=== PATIENT | female | born 1940 | race African-American/Black ===

== ENCOUNTER 2017-06-29 19:25 | Emergency (ER) | payer MEDICARE ==
[2017-06-29 19:28] VITALS: BP 189/130; PULSE 90; RESP 16; TEMP 98.4; O2SAT 98
[2017-06-29] MEDS ORDERED: METF1000 PO (19:34)
[2017-06-29] MEDS ORDERED: SYNT25TA PO (19:34)
[2017-06-29] MEDS ORDERED: SIMV20TA PO (19:34)
[2017-06-29] MEDS ORDERED: LISI-515 PO (19:34)
[2017-06-29] MEDS ORDERED: METF500T PO (19:46)
[2017-06-29 19:47] VITALS: BP 239/112; PULSE 62; RESP 18; O2SAT 98
[2017-06-29 19:51] VITALS: O2SAT 99
[2017-06-29] MEDS ORDERED: TETANUS/DIPHTHERIA TOXOID ADULT 0.5 ML VIAL IM ONE (20:00)
[2017-06-29] MEDS ORDERED: SODIUM CHLORIDE 0.9% FLUSH 10 ML FLUSH IVF PRN (20:00)
--- NOTE | 2017-06-29 20:00 | PD ---
HPI Chief Complaint: Fall Time Seen by Provider: 19:42 Travel History International Travel<30 days: No Contact w/Intl Traveler<30days: No Traveled to known affect area: No History of Present Illness HPI 76-year-old female here with family for evaluation after a mechanical fall. The patient fell forward after walking up a stair. She landed onto her face and sustained an abrasion to her nose. No LOC. She is complaining of right knee pain and facial pain. Pain is mild. She did not try to ambulate after the fall. She is not on any antiplatelets or anticoagulate use. No visual disturbances. No paresthesias or motor deficits. EMS noted her blood sugar to be elevated at 290 and blood pressure be elevated. No chest pain or dyspnea. She takes metformin for diabetes. PFS Past Medical History Depression: Yes Cardiovascular Problems: Yes (HTN) Diabetes: Yes Patient Takes Glucophage: Yes (metformin) Hypertension: Yes Medical other: Yes (thyroid) Tetanus Vaccination: Unknown Influenza Vaccination: No ?: Not : 7 Para: 6 Miscarriage: 1 Tubal Ligation: Yes Past Surgical History Cholecystectomy: Yes Social History Alcohol Use: No Tobacco Use: No Substance Use: No Allergies-Medications (Allergen,Severity, Reaction): Coded Allergies: No Known Allergies (Verified Allergy, Unknown, 06/29/17) Reported Meds & Prescriptions Reported Meds & Active Scripts Active Reported Metformin (Metformin HCl) 500 Mg Tab 500 Mg PO BIDPC Synthroid (Levothyroxine Sodium) 25 Mcg Tab Unknown Dose PO DAILY Simvastatin 20 Mg Tab 20 Mg PO DAILY Lisinopril 20 Mg Tab 20 Mg PO DAILY Review of Systems Except as stated in HPI: all other systems reviewed are Neg Physical Exam Narrative GENERAL: Well-developed, well-nourished, comfortable, no apparent distress. GCS 15. SKIN: Focused skin assessment warm/dry. Abrasion to superior/anterior bridge of nose with mild venous oozing, no arterial bleeding. HEAD: Skin exam as above. Moderate tenderness to bridge of nose with mild edema. No craniofacial step-offs or crepitus. No nasal septal hematoma. Normocephalic. EYES: Pupils equal, round, 3 mm, reactive to light. No scleral icterus. No injection or drainage. ENT: Mucous membranes pink and moist. Moderate tenderness to bridge of nose with mild edema. No craniofacial step-offs or crepitus. No nasal septal hematoma. NECK: Trachea midline. No JVD. No midline cervical spine step-off or tenderness. CARDIOVASCULAR: Regular rate and rhythm. RESPIRATORY: No accessory muscle use. Clear to auscultation. Breath sounds equal bilaterally. GASTROINTESTINAL: Abdomen soft, non-tender, nondistended. MUSCULOSKELETAL: Right anterior knee with moderate edema, no obvious bony abnormality, normal range of motion. The rest of the patient's joints and extremities are without deformity, without tenderness, with normal range of motion. No midline vertebral step-off or tenderness. No clubbing. No cyanosis. No edema. NEUROLOGICAL: Awake and alert. No obvious cranial nerve deficits. Motor grossly within normal limits. Normal speech. PSYCHIATRIC: Appropriate mood and affect; insight and judgment normal. Data Data Last Documented VS Vital Signs Date Time Temp Pulse Resp B/P (MAP) Pulse Ox O2 Delivery O2 Flow Rate FiO2 06/29/17 20:43 66 18 207/96 (133) 99 Room Air 06/29/17 19:28 98.4 Orders Orders Complete Blood Count With Diff (06/29/17 19:46) Comprehensive Metabolic Panel (06/29/17 19:46) Beta Hydroxybutyrate (Acetone) (06/29/17 19:46) Blood Gas Venous (Vbg) (06/29/17 19:46) Ecg Monitoring (06/29/17 19:46) Iv Access Insert/Monitor (06/29/17 19:46) Oximetry (06/29/17 19:46) NPO (06/29/17 19:46) Sodium Chloride 0.9% Flush (Ns Flush) (06/29/17 20:00) Ct Brain W/O Iv Contrast(Rout) (06/29/17 ) Ct Facial Bones W/O Iv Cont (06/29/17 ) Ct Cerv Spine W/O Contrast (06/29/17 ) Tetanus/Diphtheria Tox Adult (Tetanus/Di (06/29/17 20:00) Knee, Complete (4vws) (06/29/17 ) Labs Laboratory Tests Test 06/29/17 19:55 06/29/17 20:40 White Blood Count 7.9 TH/MM3 Red Blood Count 4.57 MIL/MM3 Hemoglobin 13.4 GM/DL Hematocrit 40.0 % Mean Corpuscular Volume 87.6 FL Mean Corpuscular Hemoglobin 29.2 PG Mean Corpuscular Hemoglobin Concent 33.4 % Red Cell Distribution Width 13.9 % Platelet Count 146 TH/MM3 Mean Platelet Volume 8.4 FL Neutrophils (%) (Auto) 69.5 % Lymphocytes (%) (Auto) 21.3 % Monocytes (%) (Auto) 6.4 % Eosinophils (%) (Auto) 2.2 % Basophils (%) (Auto) 0.6 % Neutrophils # (Auto) 5.5 TH/MM3 Lymphocytes # (Auto) 1.7 TH/MM3 Monocytes # (Auto) 0.5 TH/MM3 Eosinophils # (Auto) 0.2 TH/MM3 Basophils # (Auto) 0.0 TH/MM3 CBC Comment DIFF FINAL Differential Comment Blood Urea Nitrogen 18 MG/DL Creatinine 1.13 MG/DL Random Glucose 254 MG/DL Total Protein 8.6 GM/DL Albumin 3.5 GM/DL Calcium Level 9.0 MG/DL Alkaline Phosphatase 142 U/L Aspartate Amino Transf (AST/SGOT) 28 U/L Alanine Aminotransferase (ALT/SGPT) 27 U/L Total Bilirubin 0.3 MG/DL Sodium Level 137 MEQ/L Potassium Level 3.9 MEQ/L Chloride Level 102 MEQ/L Carbon Dioxide Level 29.8 MEQ/L Anion Gap 5 MEQ/L Estimat Glomerular Filtration Rate 47 ML/MIN B-Hydroxybutyrate 0.10 MMOL/L Blood Gas Puncture Site IV Blood Gas Patient Temperature 98.6 Venous Blood pH 7.37 Venous Blood Partial Pressure CO2 50 mmHg Venous Blood Partial Pressure O2 26 mmHg Venous Blood HCO3 28 mmol/L Venous Blood Oxygen Saturation 44 % Venous Blood Oxygen Content 7.6 Vol % Venous Blood Base Excess 3.2 mmol/L Oxygen Delivery Device ROOM AIR Blood Gas Inspired Oxygen 21 % [facility] Medical Decision Making Medical Screen Exam Complete: Yes Emergency Medical Condition: Yes Differential Diagnosis Mechanical fall, facial bone fracture, intracranial trauma, cervical spine injury, right knee fracture versus contusion, hyperglycemia, DKA Narrative Course Vital signs show heart rate 66, blood pressure 207/96, pulse ox 99% on room air , oral temp of 98.4F. CBC: WBC 7.9, hemoglobin 13.4, hematocrit 40, platelets 146. CMP is remarkable for creatinine 1.13, GFR 47, random glucose 257. Bicarbonate is normal at 29.8. Venous pH is 7.37. Beta hydroxybutyrate is 0.10. The patient is not in DKA. CT head: Normal exam. CT cervical spine: No acute abnormality. There is mild chronic change. CT facial bones: No acute disease. Right knee x-ray: Chronic change. No acute abnormality. The patient and the patient's family were made aware of all findings. Antibody ointment applied to nasal abrasion. There is no nasal septal hematoma on exam. The patient is overall very well-appearing. She is stable for discharge home with outpatient follow-up with her primary care physician this week. Local wound care to nasal abrasion endorsed. She was informed on when to return to the emergency department. Both the patient and the patient's family verbalized understanding and agreement with plan. Diagnosis Primary Impression: Fall Qualified Codes: W19.XXXA - Unspecified fall, initial encounter Additional Impressions: Closed head injury Qualified Codes: S09.90XA - Unspecified injury of head, initial encounter Nasal abrasion Qualified Codes: S00.31XA - Abrasion of nose, initial encounter Contusion of right knee Qualified Codes: S80.01XA - Contusion of right knee, initial encounter Hyperglycemia Referrals: Primary Care Physician 3 days Additional Instructions: Follow-up with your primary care physician this week. Return to the emergency department for worsening symptoms or any other concerns. Disposition: 01 DISCHARGE HOME Condition: Stable Ronny Mack MD Jun 29, 2017 20:00
[2017-06-29 20:10] LABS: AUTOMATED NEUTROPHIL # 5.5 TH/MM3 (1.8-7.7); BASOPHIL % 0.6 % (0.0-2.0); EOSINOPHIL # 0.2 TH/MM3 (0-0.4); EOSINOPHIL % 2.2 % (0.0-4.0); HEMO FLAGS DIFF FINAL; LYMPH % 21.3 % (9.0-44.0); LYMPHOCYTE # 1.7 TH/MM3 (1.0-4.8); MEAN CELL VOLUME 87.6 FL (80.0-100.0); MEAN CORPUSCULAR HEMOGLOBIN 29.2 PG (27.0-34.0); MEAN CORPUSCULAR HGB CONC 33.4 % (32.0-36.0); MONO % 6.4 % (0.0-8.0); NEUT % 69.5 % (16.0-70.0); PLATELET COUNT 146 TH/MM3 (150-450); RED BLOOD COUNT 4.57 MIL/MM3 (4.00-5.30); RED CELL DISTRIBUTION WIDTH 13.9 % (11.6-17.2); WHITE BLOOD COUNT 7.9 TH/MM3 (4.0-11.0)
[2017-06-29 20:25] LABS: ANION GAP 5 MEQ/L (5-15); AST (GOT) 28 U/L (15-37); BICARBONATE 29.8 MEQ/L (21.0-32.0); BLOOD UREA NITROGEN 18 MG/DL (7-18); CHLORIDE 102 MEQ/L (98-107); GLOMERULAR FILTRATION RATE 47 ML/MIN (>89); POTASSIUM 3.9 MEQ/L (3.5-5.1); SODIUM (NA) 137 MEQ/L (136-145)
[2017-06-29 20:26] LABS: ALT (GPT) 27 U/L (10-53)
[2017-06-29 20:28] LABS: ALKALINE PHOSPHATASE 142 U/L (45-117); TOTAL BILIRUBIN ADULT 0.3 MG/DL (0.2-1.0)
--- NOTE | 2017-06-29 20:37 | RADRPT ---
EXAM DATE/TIME: 06/29/2017 20:02 [facility] COMPARISON: No previous studies available for comparison. INDICATIONS : Pain post fall. MEDICAL HISTORY : Diabetes mellitus type II. Hypertension SURGICAL HISTORY : Cholecystectomy. ENCOUNTER: Initial ACUITY: 1 day PAIN SCORE: 6/10 LOCATION: Right Patella. FINDINGS: The knee joint is aligned. There is chondrocalcinosis seen at the medial and lateral joint spaces. A significant effusion is not seen. There some spurring at the anterior superior aspect of the patella. Vascular calcifications are seen. CONCLUSION: Chronic change as described above. An acute abnormality is not seen. Mehdi Bello MD on June 29, 2017 at 20:35 Board Certified Radiologist. This report was verified electronically.
--- NOTE | 2017-06-29 20:38 | RADRPT ---
EXAM DATE/TIME: 06/29/2017 20:12 [facility] COMPARISON: No previous studies available for comparison. INDICATIONS : Trauma, fall. RADIATION DOSE: 46.14 CTDIvol (mGy) MEDICAL HISTORY : Hypertension. SURGICAL HISTORY : None. ENCOUNTER: Initial ACUITY: 1 day PAIN SCALE: 5/10 LOCATION: cranial TECHNIQUE: Multiple contiguous axial images were obtained of the head. Using automated exposure control and adj ustment of the mA and/or kV according to patient size, radiation dose was kept as low as reasonably a chievable to obtain optimal diagnostic quality images. DICOM format image data is available electro nically for review and comparison. FINDINGS: CEREBRUM: The ventricles are normal for age. No evidence of midline shift, mass lesion, hemorrhage or acute in farction. No extra-axial fluid collections are seen. POSTERIOR FOSSA: The cerebellum and brainstem are intact. The 4th ventricle is midline. The cerebellopontine angle i s unremarkable. EXTRACRANIAL: The visualized portion of the orbits is intact. SKULL: The calvaria is intact. No evidence of skull fracture. CONCLUSION: Normal examination. Mehdi Bello MD on June 29, 2017 at 20:36 Board Certified Radiologist. This report was verified electronically.
--- NOTE | 2017-06-29 20:41 | RADRPT ---
EXAM DATE/TIME: 06/29/2017 20:12 [facility] COMPARISON: No previous studies available for comparison. INDICATIONS : Trauma, fall. RADIATION DOSE: 30.34 CTDIvol (mGy) MEDICAL HISTORY : Hypertension. SURGICAL HISTORY : None. ENCOUNTER: Initial ACUITY: 1 day PAIN SCALE: 5/10 LOCATION: neck TECHNIQUE: Volumetric scanning of the cervical spine was performed. Multiplanar reconstructions in the sagittal, coronal and oblique axial planes were performed. Using automated exposure control and adjustment o f the mA and/or kV according to patient size, radiation dose was kept as low as reasonably achievable to obtain optimal diagnostic quality images. DICOM format image data is available electronically f or review and comparison. FINDINGS: VERTEBRAE: Normal vertebral body height. ALIGNMENT: No evidence of subluxation. C2-C3: The bony spinal canal is normal in size. No evidence of disc bulge or herniation. The neural forami na are bilaterally patent. There is fusion of the facet joints. C3-C4: The bony spinal canal is normal in size. No evidence of disc bulge or herniation. The neural forami na are bilaterally patent. C4-C5: The bony spinal canal is normal in size. No evidence of disc bulge or herniation. The neural forami na are bilaterally patent. There are minimal marginal osteophytes. C5-C6: The bony spinal canal is normal in size. No evidence of disc bulge or herniation. The neural forami na are bilaterally patent. Minimal anterior marginal osteophytes are seen. C6-C7: The bony spinal canal is normal in size. No evidence of disc bulge or herniation. The neural forami na are bilaterally patent. Minimal anterior marginal osteophytes are seen. C7-T1: The bony spinal canal is normal in size. No evidence of disc bulge or herniation. The neural forami na are bilaterally patent. CONCLUSION: No acute abnormality seen. There is mild chronic change. Mehdi Bello MD on June 29, 2017 at 20:37 Board Certified Radiologist. This report was verified electronically.
[2017-06-29 20:43] VITALS: BP 207/96; PULSE 66; RESP 18; O2SAT 99
[2017-06-29 20:45] LABS: BLOOD GAS VENOUS BASE EXCESS 3.2 mmol/L (-2-2); BLOOD GAS VENOUS HCO3 28 mmol/L (22-26); BLOOD GAS VENOUS O2 CONTENT 7.6 Vol % (9.0-17.0); BLOOD GAS VENOUS O2 HGB SAT 44 % (70-76); BLOOD GAS VENOUS PCO2 50 mmHg (44-48); BLOOD GAS VENOUS PO2 26 mmHg (35-40); BLOOD GAS VENOUS pH 7.37 (7.360-7.400); CRITICAL VALUE YES; DRAW SITE IV; FIO2 21 %; OXYGEN DEVICE ROOM AIR; STAT YES; TEMP CORR TO 98.6
--- NOTE | 2017-06-29 20:45 | RADRPT ---
EXAM DATE/TIME: 06/29/2017 20:12 [facility] COMPARISON: No previous studies available for comparison. INDICATIONS : Trauma, fall. RADIATION DOSE: 52.04 CTDIvol (mGy) MEDICAL HISTORY : Hypertension. SURGICAL HISTORY : None. ENCOUNTER: Initial ACUITY: 1 day PAIN SCORE: 5/10 LOCATION: facial TECHNIQUE: Volumetric scanning of the facial bones was performed. Using automated exposure control and adjustme nt of the mA and/or kV according to patient size, radiation dose was kept as low as reasonably achiev able to obtain optimal diagnostic quality images. DICOM format image data is available electronicall y for review and comparison. FINDINGS: ORBITS: The orbital and infraorbital osseous structures are intact. The retroconal structures have a normal configuration. No radiopaque foreign bodies are seen. NASAL BONE: The nasal bone and maxillary spine are intact ZYGOMATIC ARCHES: Symmetric without evidence of fracture. SINUSES: The maxillary, ethmoid and frontal sinuses are intact. No air-fluid levels seen. NASAL CAVITY: The nasal septum is intact and midline. The lacrimal ducts are intact. SOFT TISSUES: No radiopaque foreign bodies seen. No soft-tissue swelling is seen. INTRACRANIAL: No intracranial air seen. CRIBIFORM PLATE: Grossly intact. CONCLUSION: No acute disease. Mehdi Bello MD on June 29, 2017 at 20:42 Board Certified Radiologist. This report was verified electronically.
== END 2017-06-29 21:08 | disposition home or self-care (01) ==
LOC: NEPE 19:25
DX: S09.90XA Unspecified injury of head, initial encounter (principal); S80.01XA Contusion of right knee, initial encounter; S00.31XA Abrasion of nose, initial encounter; E11.65 Type 2 diabetes mellitus with hyperglycemia; F32.9 Major depressive disorder, single episode, unspecified; I10 Essential (primary) hypertension; W10.9XXA Fall (on) (from) unspecified stairs and steps, initial encounter; Z79.899 Other long term (current) drug therapy; Z23 Encounter for immunization
CPT/HCPCS: 70450; 70486; 72125; 73564; 80053; 82010; 82805; 85025; 90471; 90714